=== PATIENT | female | born 1995 | race Caucasian/White ===

== ENCOUNTER 2017-03-03 10:43 | Emergency (ER) | payer BC ==
[2017-03-03] MEDS ORDERED: PROPARACAINE HCL OPTH 15ML BTL OPTH ONE (11:55)
--- NOTE | 2017-03-03 11:58 | Emergency Department Record ---
History of Present Illness - General Chief complaint: Eye Problem Stated complaint: RED ITCHY EYE Time Seen by Provider: 03/03/17 11:39 Source: Patient Mode of Arrival: Ambulatory Limitations: No limitations - History of Present Illness Initial comments: The patient has R eye irritation and itching for a week. She states it is crusted in the morning and mildly irritated at times. She denies any blurred vision, pain, or FB sensation. The patient does not wear a contact in the R eye. chief complaint: Eye redness Onset/Timin -: Week(s) Onset Description: Gradual Location: Right eye Place: Home Eye Symptoms: Discharge, Itching, Pain, Redness Severity: Mild Severity scale (1-10): 6 Consistency: Intermittent Associated Symptoms: None Treatments Prior to Arrival: None - Related Data Home Medications Medication Instructions Recorded Confirmed Last Taken Medroxyprogesterone Acetate [Depo 1 ml IM ASDIR 05/08/16 03/03/17 03/14/16 Provera] Previous Rx's Medication Instructions Recorded Erythromycin Base [Erythromycin 1 apply AFFEYE QID #1 tube 03/03/17 OPTH Ointment] Allergies Allergy/AdvReac Type Severity Reaction Status Date / Time codeine AdvReac VOMITING Verified 03/03/17 11:27 dextromethorphan HBr AdvReac VOMITING Verified 03/03/17 11:27 [From NyQuil] doxylamine succinate AdvReac VOMITING Verified 03/03/17 11:27 [From NyQuil] hydrocodone AdvReac VOMITING Verified 03/03/17 11:27 pseudoephedrine HCl AdvReac VOMITING Verified 03/03/17 11:27 [From DayQuil Sinus Pressure/Pain] Travel Screening - Travel/Exposure Within Last 30 Days Have you traveled within the last 30 days?: No - Travel/Exposure Within Last Year Have you traveled outside the [place] in the last year?: No - Additonal Travel Details Have you been exposed to anyone with a communicable illness?: No - Travel Symptoms Symptom Screening: None Review of Systems Constitutional: Denies: Chills, Fever Eyes: Reports: Eye discharge. Denies: Eye pain, Photophobia, Vision change ENT: Denies: Congestion Respiratory: Denies: Cough Past Medical History - SOCIAL HISTORY Smoking Status: Current every day smoker Alcohol Use: Rare Drug Use: None - RESPIRATORY Hx Respiratory Disorders: No - CARDIOVASCULAR Hx Cardio Disorders: No - NEURO Hx Neuro Disorders: No - GI Hx GI Disorders: No - Hx Genitourinary Disorders: No - ENDOCRINE Hx Endocrine Disorders: No - MUSCULOSKELETAL Hx Musculoskeletal Disorders: No - PSYCH Hx Psych Problems: No - HEMATOLOGY/ONCOLOGY Hx Hematology/Oncology Disorders: No Family Medical History Any Significant Family History?: No Physical Exam - General General Appearance: Alert, Oriented x3, Cooperative, No acute distress - Head Head exam: Atraumatic, Normocephalic, Normal inspection - Eye Eye exam: PERRL, Conjunctival injection (Mild R eye.), EOMI, Other (The cornea is clear with a neg Flourescein staining of the R eye.). negative: Normal appearance, Periorbital swelling, Periorbital tenderness - ENT Nasal Exam: Normal inspection. negative: Discharge, Sinus tenderness Teeth exam: Normal inspection. negative: Dental caries Course Vital Signs 03/03/17 11:28 Temperature 98.4 F Pulse Rate 103 H Respiratory 20 Rate Blood Pressure 116/77 Pulse Ox 95 - Reevaluation(s) Reevaluation #1: I did discuss the need for Abx ointment and warm compresses to the R eye. 03/03/17 12:02 Disposition Disposition: Discharge Clinical Impression: Conjunctivitis Qualifiers: Conjunctivitis type: acute Acute conjunctivitis type: unspecified Laterality: right Qualified Code(s): H10.31 - Unspecified acute conjunctivitis, right eye Disposition: Home, Self-Care Condition: (1) Good Instructions: Conjunctivitis (ED) Additional Instructions: Please use the Emycin Opth. Ointment to the R eye as directed along with warm compresses when possible. Please see your PCP in 3 days if not better and return to the ER if worse. Prescriptions: Erythromycin Base [Erythromycin OPTH Ointment] 1 apply AFFEYE QID #1 tube Forms: Patient Portal Access Time of Disposition: 12:04 Quality - Quality Measures Quality Measures: N/A - Blood Pressure Screening View Details: Yes Blood Pressure Classification: Normal BP Reading Systolic Measurement: 116 Diastolic Measurement: 77 Screening for High Blood Pressure: < Normal BP, F/U Not Required > [G8783] Normal BP Follow-up Interventions: No follow-up required
== END 2017-03-03 12:00 | disposition home or self-care (01) ==
LOC: ER 10:43
DX: H10.31 Unspecified acute conjunctivitis, right eye (principal)
CPT/HCPCS: 99282

== ENCOUNTER 2018-02-25 22:01 | Emergency (ER) | payer SELFPAY ==
--- NOTE | 2018-02-25 22:14 | Emergency Department Record ---
History of Present Illness - General Chief Complaint: Ankle/Foot Injury Stated Complaint: RT ANKLE INJURY DUE TO A FALL Time Seen by Provider: 02/25/18 22:09 Source: Patient Mode of Arrival: Ambulatory Limitations: No limitations - History of Present Illness Initial Comments: 23 yo female presents with 3 days of right ankle pain after tripping on her laundry basket. She has medial and lateral right ankle pain. Intact skin. No numbness or tingling. She continues to have pain with walking. No history of ankle disease or injury in the past. MD Complaint: Ankle injury -: Days(s) (3) Injury: Ankle: Right Type of Injury: Unknown Place: Home Severity: Moderate Improves With: Nothing Worsens With: Palpation, Weight bearing Context: Walking (tripped on laundry basket) Other Symptoms: Other Associated Symptoms: Able to partially bear weight Treatments Prior to Arrival: Splint - Related Data Allergies Allergy/AdvReac Type Severity Reaction Status Date / Time codeine AdvReac VOMITING Verified 03/03/17 11:27 dextromethorphan HBr AdvReac VOMITING Verified 03/03/17 11:27 [From NyQuil] doxylamine succinate AdvReac VOMITING Verified 03/03/17 11:27 [From NyQuil] hydrocodone AdvReac VOMITING Verified 03/03/17 11:27 pseudoephedrine HCl AdvReac VOMITING Verified 03/03/17 11:27 [From DayQuil Sinus Pressure/Pain] Review of Systems Constitutional: Denies: Chills, Fever, Weakness Eyes: Denies: Vision change ENT: Denies: Congestion, Ear pain, Throat pain Cardiovascular: Denies: Chest pain, Syncope Endocrine: Denies: Fatigue, Polydipsia, Polyuria Gastrointestinal: Denies: Abdominal pain, Diarrhea, Nausea, Vomiting Genitourinary: Denies: Dysuria Musculoskeletal: Reports: As per HPI, Arthralgia, Joint swelling. Denies: Back pain, Myalgia, Neck pain Skin: Denies: Bruising, Change in color, Rash Neurological: Denies: Abnormal gait, Numbness, Tingling, Weakness Psychiatric: Denies: Anxiety Hematological/Lymphatic: Denies: Blood Clots, Easy bleeding, Easy bruising Past Medical History - SOCIAL HISTORY Smoking Status: Current every day smoker Drug Use: None - RESPIRATORY Hx Respiratory Disorders: No - CARDIOVASCULAR Hx Cardio Disorders: No - NEURO Hx Neuro Disorders: No - GI Hx GI Disorders: No - Hx Genitourinary Disorders: No - ENDOCRINE Hx Endocrine Disorders: No - MUSCULOSKELETAL Hx Musculoskeletal Disorders: No - PSYCH Hx Psych Problems: No - HEMATOLOGY/ONCOLOGY Hx Hematology/Oncology Disorders: No Physical Exam - General General Appearance: Alert, Oriented x3, Cooperative, No acute distress Limitations: No limitations - Head Head exam: Atraumatic, Normal inspection - Eye Eye exam: Normal appearance - ENT ENT exam: Normal exam Ear exam: Normal external inspection Nasal Exam: Normal inspection Mouth exam: Normal external inspection - Neck Neck exam: Normal inspection - Cardiovascular Peripheral Pulses: 2+: Dorsalis Pedis (R) - Extremities Extremities exam: Normal inspection, Full ROM, Joint swelling, Normal capillary refill, Tenderness Image of Feet: 1 - minimal swelling, no deformity, mild tenderness medial and lateral malleoli - Neurological Neurological exam: Alert, Oriented X3 - Psychiatric Psychiatric exam: Normal affect, Normal mood - Skin Skin exam: Dry, Intact, Normal color, Warm Course - Reevaluation(s) Reevaluation #1: 02/25/18 22:23 The prelim XR was reviewed. No acute displaced fracture or dislocation She will be immobilized and crutches provided Disposition Disposition: Discharge Clinical Impression: Ankle sprain Qualifiers: Encounter type: initial encounter Involved ligament of ankle: unspecified ligament Laterality: right Qualified Code(s): S93.401A - Sprain of unspecified ligament of right ankle, initial encounter Disposition: Home, Self-Care Condition: (1) Good Instructions: Ankle Sprain (ED) Additional Instructions: Ice and elevate the ankle to minimize swelling Use the air splint and crutches for support Call your doctor for a recheck in the next week if pain continues in 5-7 days Do not weight bear until pain free. Forms: Patient Portal Access Time of Disposition: 22:24 Quality - Quality Measures Quality Measures: N/A - Blood Pressure Screening Does Patient Have Any of the Following: No Blood Pressure Classification: Pre-Hypertensive BP Reading Systolic Measurement: 123 Diastolic Measurement: 78 Screening for High Blood Pressure: < Pre-Hypertensive BP, F/U Documented > [ G8950] Pre-Hypertensive Follow-up Interventions: Referral to alternative/primary care provider.
--- NOTE | 2018-02-26 14:32 | RADIOLOGY REPORT ---
EXAM: RIGHT ANKLE HISTORY: PATIENT HAS PAIN WITHIN RIGHT ANKLE. TECHNIQUE: Three views of the right ankle are provided without comparison examinations. FINDINGS: There is no radiographic evidence of a fracture or dislocation of the right ankle. No significant soft tissue abnormalities are visualized. The ankle mortise is intact. No radiopaque foreign bodies are identified. IMPRESSION: NO RADIOGRAPHIC EVIDENCE OF AN ACUTE PROCESS INVOLVING THE RIGHT ANKLE. JOB NUMBER: [id number] MTDD
== END 2018-02-25 23:05 | disposition home or self-care (01) ==
LOC: ER 22:01
DX: S93.401A Sprain of unspecified ligament of right ankle, initial encounter (principal); F17.210 Nicotine dependence, cigarettes, uncomplicated; W01.0XXA Fall on same level from slipping, tripping and stumbling without subsequent striking against object, initial encounter; Y93.E2 Activity, laundry; Y92.009 Unspecified place in unspecified non-institutional (private) residence as the place of occurrence of the external cause
CPT/HCPCS: 99283